=== PATIENT | male | born 1960 | race Caucasian/White ===

== ENCOUNTER 2023-09-16 10:06 | Outpatient (CLI) | payer OTHER, SELFPAY | END 2023-09-16 10:07 | disposition home or self-care (01) | LOC: NFLDREF 10:08 | PROVIDERS: PCP Family Medicine; Visit Provider Family Medicine | DX: Z12.5 Encounter for screening for malignant neoplasm of prostate (principal); Z80.42 Family history of malignant neoplasm of prostate | CPT/HCPCS: G0103 ==

== ENCOUNTER 2023-09-27 08:06 | Outpatient (CLI) | payer OTHER, SELFPAY ==
--- NOTE | 2023-09-27 09:40 | W.ANESCHARGE ---
Anesthesia Charges Start Date/Time Anesthesia Start Date: 09/27/23 Anesthesia Start Time: 08:54 Stop Date/Time Anesthesia Stop Date: 09/27/23 Anesthesia Stop Time: 09:35
--- NOTE | 2023-09-27 10:10 | W.ANESCHARGE ---
Anesthesia Charges Start Date/Time Anesthesia Start Date: 09/27/23 Anesthesia Start Time: 08:54 Stop Date/Time Anesthesia Stop Date: 09/27/23 Anesthesia Stop Time: 09:35
== END 2023-09-27 08:07 | disposition home or self-care (01) ==
LOC: OP CLINIC 08:07
PROVIDERS: PCP Family Medicine; Visit Provider Surgery
DX: Z12.11 Encounter for screening for malignant neoplasm of colon (principal); K63.5 Polyp of colon; K57.30 Diverticulosis of large intestine without perforation or abscess without bleeding; K62.1 Rectal polyp
CPT/HCPCS: 00811; 45381; 45385; 88305; J2704

== ENCOUNTER 2024-09-18 07:57 | Outpatient (CLI) | payer MEDICARE, BC, SELFPAY ==
--- NOTE | 2024-09-18 09:23 | P.ANES_ITS ---
Anesthesia Charges Start Date/Time Anesthesia Start Date: 09/18/24 Anesthesia Start Time: 08:53 Stop Date/Time Anesthesia Stop Date: 09/18/24 Anesthesia Stop Time: 09:24 Coding CPT Codes CPT Codes: RCISSY LWR INTST NDSC NOS - [id number] ([id number]) QK - MD OPHTHALMOLOGIST 2-4 CNCRNT CRISSY PROC, QX - POLITICAL GEOGRAPHER SVC W/ MD MED DIRECTION, P2 - PATIENT W/MILD SYST DISEASE
--- NOTE | 2024-09-18 09:23 | W.ANESCHARGE ---
Anesthesia Charges Start Date/Time Anesthesia Start Date: 09/18/24 Anesthesia Start Time: 08:53 Stop Date/Time Anesthesia Stop Date: 09/18/24 Anesthesia Stop Time: 09:24 Coding CPT Codes CPT Codes: CRISSY LWR INTST NDSC NOS - [id number] ([id number]) QK - SALES ACCOUNT COORDINATOR 2-4 CNCRNT CRISSY PROC, QX - TERRAZZO TILE MAKER SVC W/ MD MED DIRECTION, P2 - PATIENT W/MILD SYST DISEASE
--- NOTE | 2024-09-18 09:33 | P.ANES_ITS ---
Anesthesia Charges Start Date/Time Anesthesia Start Date: 09/18/24 Anesthesia Start Time: 08:53 Stop Date/Time Anesthesia Stop Date: 09/18/24 Anesthesia Stop Time: 09:24 Coding CPT Codes CPT Codes: CRISSY LWR INTST NDSC NOS - [id number] ([id number]) P2 - PATIENT W/MILD SYST DISEASE, QK - MEDICAL SUPPORT SPECIALIST 2-4 CNCRNT ANES PROC, QX - DELIVERY STOCK CLERK SVC W/ MD MED DIRECTION
--- NOTE | 2024-09-18 09:33 | W.ANESCHARGE ---
Anesthesia Charges Start Date/Time Anesthesia Start Date: 09/18/24 Anesthesia Start Time: 08:53 Stop Date/Time Anesthesia Stop Date: 09/18/24 Anesthesia Stop Time: 09:24 Coding CPT Codes CPT Codes: CRISSY LWR INTST NDSC NOS - [id number] ([id number]) P2 - PATIENT W/MILD SYST DISEASE, QK - SLOT AMBASSADOR 2-4 CNCRNT ANES PROC, QX - QUARTER DOPER SVC W/ MD MED DIRECTION
== END 2024-09-18 07:58 | disposition home or self-care (01) ==
LOC: OP CLINIC 07:59
PROVIDERS: PCP Family Medicine; Visit Provider Surgery
DX: Z12.11 Encounter for screening for malignant neoplasm of colon (principal); D12.0 Benign neoplasm of cecum; K57.30 Diverticulosis of large intestine without perforation or abscess without bleeding; Z86.0100 Personal history of colon polyps, unspecified
CPT/HCPCS: 00811; 45385; 88305; J2704